=== PATIENT | male | born 1980 | race Two or more races ===

== ENCOUNTER 2021-02-08 14:58 | Emergency (ER) | payer OTHER ==
[~2021-02-08] VITALS: Ht 165.1 cm; Wt 56.7 kg
[2021-02-08] MEDS ORDERED: CIPRO500 MG PO (16:15)
== END 2021-02-08 17:20 | disposition home or self-care (01) ==
LOC: ER 14:58
DX: S61.022A Laceration with foreign body of left thumb without damage to nail, initial encounter (principal); W45.8XXA Other foreign body or object entering through skin, initial encounter; Y93.89 Activity, other specified; Y92.69 Other specified industrial and construction area as the place of occurrence of the external cause; Y99.8 Other external cause status